=== PATIENT | female | born 1980 | race African-American/Black ===

== ENCOUNTER 2021-07-12 04:10 | Emergency (ER) | payer SELFPAY ==
[2021-07-12] MEDS ORDERED: MAGNES/ALUMIN/SIMET 30ML UCUP ONE (04:41)
[2021-07-12] MEDS ORDERED: ONDANSETRON 4 MG/2 ML VIAL ONE (04:41)
[2021-07-12] MEDS ORDERED: LIDOCAINE VISCOUS 2% SOLN 15 ML UDC ONE (04:41)
[2021-07-12 04:42] LABS: Absolute Lymphocytes (CBC) 0.5 K/uL (0.7-4.9); Basophils % 2.1 % (0-1.3); Hematocrit 33.8 % (36.0-45.0); Lymphocytes % 31.3 % (15.3-44.8); MPV 8.2 fL (7.6-11.3); RBC Red Blood Cell Count 4.23 M/uL (3.86-4.86)
[2021-07-12 05:01] LABS: ALT/SGPT 33 U/L (12-78); AST/SGOT 38 U/L (15-37); Albumin 2.9 g/dL (3.4-5.0); Alkaline Phosphatase 34 U/L (45-117); BUN Blood Urea Nitrogen 7 mg/dL (7-18); Bicarbonate 27 mmol/L (21-32); Bilirubin Direct 0.3 mg/dL (0-0.2); Bilirubin Total 0.7 mg/dL (0.2-1.0); Glucose Level 102 mg/dL (74-106); Lipase 166 U/L (73-393); Potassium 3.2 mmol/L (3.5-5.1); Protein, Total 7.7 g/dL (6.4-8.2); Sodium Level 141 mmol/L (136-145); Troponin (Emerg Dept Use Only) < 0.02 ng/mL (0.0-0.045)
[2021-07-12 05:17] LABS: Blood Morphology Comment NOTED (NOT SEEN); Ovalocytes 1+; Platelet Estimate ADEQ; White Blood Cell Scan OK (OK)
[2021-07-12] MEDS ORDERED: cloNIDine HCL 0.1 MG TAB ONE (05:28)
--- NOTE | 2021-07-12 05:54 | EDPHYS ---
Physician Documentation [facility] Name: Kenny Azul Age: 41 yrs Sex: Female : 1980 Arrival Date: 07/12/2021 Time: 04:14 Bed 7 Private MD: ED Physician Bear Jaime HPI: 07/12 04:19 This 41 yrs old Black Female presents to ER via Unassigned with complaints of chest rn pain. 04:19 The patient or guardian reports chest pain that is located primarily in the substernal rn area. The pain does not radiate. Associated signs and symptoms: Pertinent positives: nausea, vomiting, Pertinent negatives: abdominal pain, cough, diaphoresis, dizziness, headache, lower extremity pain, lower extremity swelling, lightheadedness, near syncope, palpitations, recent travel, shortness of breath, syncope. 04:42 The chest pain is described as aching. Duration: The patient or guardian reports a rn single episode. Modifying factors: The symptoms are alleviated by nothing. the symptoms are aggravated by Vomiting. Severity of pain: At its worst the pain was mild in the emergency department the pain is unchanged. The patient has not experienced similar symptoms in the past. The patient has not recently seen a physician. Patient reports tonight began with nausea vomiting and diarrhea, then began to have chest pain, achy. Denies any cardiac or pulmonary medical problems. Reports vague abdominal pain. Reports yesterday felt okay without fever or chills. No previous history of chest pain. No blood in emesis or stool.. - Immunization history:: Client reports receiving the 1st dose of the Covid vaccine. - Social history:: Smoking status: unknown. - Family history:: not pertinent. - Hospitalizations: : No recent hospitalization is reported. ROS: 04:42 Constitutional: Negative for fever, chills, and weight loss, Eyes: Negative for injury, rn pain, redness, and discharge, ENT: Negative for injury, pain, and discharge, Neck: Negative for injury, pain, and swelling, Cardiovascular: Positive for chest pain, negative for palpitations Respiratory: Negative for shortness of breath, cough, wheezing, and pleuritic chest pain, Abdomen/GI: Positive for abdominal pain/nausea/vomiting/diarrhea Back: Negative for injury and pain, : Negative for injury, bleeding, discharge, and swelling, MS/Extremity: Negative for injury and deformity, Skin: Negative for injury, rash, and discoloration, Neuro: Negative for headache, weakness, numbness, tingling, and seizure. Exam: 04:42 Constitutional: This is a well developed, well nourished patient who is awake, alert, rn and in no acute distress. Head/Face: Normocephalic, atraumatic. Eyes: Periorbital areas with no swelling, redness, or edema. ENT: No stridor Cardiovascular: Regular rate and rhythm. No pulse deficits. Respiratory: No increased work of breathing, no retractions or nasal flaring. Abdomen/GI: Soft, non-tender Skin: Warm, dry MS/ Extremity: Pulses equal, no cyanosis. Neuro: Awake and alert, GCS 15 06:27 ECG was reviewed by the Attending Physician. rn Vital Signs: 04:20 BP 220 / 121; Pulse 79; Resp 19; Temp 98.2; Pulse Ox 100% on R/A; Weight 79.38 kg; ea Height 5 ft. 9 in. (175.26 cm); Pain 3/10; 05:07 BP 199 / 110; Pulse 78; Resp 18; Pulse Ox 99% on R/A; ea 06:00 BP 127 / 89; Pulse 80; Resp 18; Pulse Ox 99% ; ea 04:20 Body Mass Index 25.84 (79.38 kg, 175.26 cm) ea MDM: 04:15 Patient medically screened. rn 05:51 Differential diagnosis: acute myocardial infarction, acute pericarditis, anxiety, chest rn wall pain, esophagitis, gastritis, gastroesophageal reflux disease (GERD), pleurisy, pneumonia, pneumothorax, pulmonary embolus, thoracic aortic disection. Data reviewed: vital signs, nurses notes, lab test result(s), EKG, radiologic studies, CT scan, and as a result, I will discharge patient. Data interpreted: phototypesetting equipment monitor: rate is 78 beats/min, rhythm is normal sinus rhythm, regular, with no ectopy, Interpretation: normal rate, normal rhythm, Pulse oximetry: on room air is 99 %. Interpretation: normal. Test interpretation: by ED physician or midlevel provider: ECG, plain radiologic studies, Hest x-ray with mild bilateral interstitial infiltrates consistent with Covid pneumonia. Counseling: I had a detailed discussion with the patient and/or guardian regarding: the historical points, exam findings, and any diagnostic results supporting the discharge/admit diagnosis, the presence of at least one elevated blood pressure reading (>120/80) during this emergency department visit, radiology results, the need for outpatient follow up, to return to the emergency department if symptoms worsen or persist or if there are any questions or concerns that arise at home. Response to treatment: the patient's symptoms have mildly improved after treatment, and as a result, I will discharge patient. Special discussion: Based on the patient's history, exam, and Dx evaluation, there is no indication for emergent intervention or inpatient Tx. It is understood by the patient/guardian that if the Sx's persist or worsen they need to return immediately for re-evaluation. I discussed with the patient/guardian in detail that at this point there is no indication for admission to the hospital. It is understood, however, that if the symptoms persist or worsen the patient needs to return immediately for re-evaluation. ED course: CT aorta without acute findings. Some findings consistent with Covid pneumonia. No oxygen requirement. Covid positive here. Will DC home with return precautions. States got vaccinated 3 months ago.. 07/12 04:17 Order name: Basic Metabolic Panel; Complete Time: 05:21 rn 07/12 04:17 Order name: CBC with Diff; Complete Time: 05: rn 07/12 04:17 Order name: Hepatic Function; Complete Time: 05: rn 07/12 04:17 Order name: Lipase; Complete Time: 05:21 rn 07/12 04:17 Order name: Troponin (emerg Dept Use Only); Complete Time: 05:21 rn 07/12 04:17 Order name: EKG; Complete Time: 04:17 rn 07/12 04:17 Order name: CT Aorta for Dissection rn 07/12 04:44 Order name: CBC Smear Scan; Complete Time: 05:21 EDMS 07/12 04:55 Order name: CREATININE WHOLE BLOOD; Complete Time: 04:59 EDMS 07/12 05:28 Order name: SARS-COV-2 RT PCR; Complete Time: 05:32 EDMS 07/12 04:17 Order name: IV Saline Lock; Complete Time: 04:27 rn 07/12 04:17 Order name: Labs collected and sent; Complete Time: 04: rn 07/12 04:17 Order name: EKG - Nurse/Tech; Complete Time: : rn EC: Rate is 68 beats/min. Rhythm is regular. QRS [place] is Normal. HI interval is normal. QRS rn interval is normal. QT interval is normal. No Q waves. T waves are Normal. No ST changes noted. Clinical impression: NSR w/ Non-specific ST/T Changes. Interpreted by me. Reviewed by me. Administered Medications: : Drug: Zofran (Ondansetron) 4 mg Route: IVP; Site: right antecubital; ea 05:07 Follow up: Response: No adverse reaction ea 04:27 Drug: GI Cocktail without - (Maalox Suspension 30 ml, Lidocaine Liquid 2 % 15 ea ml) Route: PO; 05:07 Follow up: Response: No adverse reaction ea 05:06 Drug: cloNIDine 0.2 mg Route: PO; ea 06:35 Follow up: Response: No adverse reaction ea Disposition Summary: 07/12/21 05:54 Discharge Ordered Location: Home rn Problem: new rn Symptoms: have improved rn Condition: Stable rn Diagnosis - Pneumonia due to SARS-associated coronavirus rn - Chest pain, unspecified rn Followup: rn - With: Private Physician - When: As needed - Reason: Recheck today's complaints, Re-evaluation by your physician Discharge Instructions: - Discharge Summary Sheet rn - COVID-19 rn - 10 Things You Can Do to Manage Your COVID-19 Symptoms at Home - [facility] rn Forms: - Medication Reconciliation Form rn - Thank You Letter rn - Antibiotic clinical rn liaison - Prescription Opioid Use rn - Work release form ea Prescriptions: - ondansetron 4 mg Oral tablet,disintegrating - place 1 tablet by TRANSLINGUAL route every 8 hours As needed; 20 tablet; rn Refills: 0, Product Selection Permitted Signatures: Dispatcher [employer] EDMS Bear Jaime MD MD rn Antunez, Elena, RN RN tanesha Corrections: (The following items were deleted from the chart) :35 04:17 CORONAVIRUS+ ordered. EDMS EDMS
--- NOTE | 2021-07-12 05:54 | ER ---
Nurse's Notes [facility] Name: Kenny Azul Age: 41 yrs Sex: Female : 1980 Arrival Date: 07/12/2021 Time: 04:14 Bed 7 Private MD: Diagnosis: Pneumonia due to SARS-associated coronavirus;Chest pain, unspecified Presentation: 07/12 04:20 Chief complaint: Patient states: N/V/D with cp pt states "works at [employer] and thinks she ea had potiental exposure to covid.". Coronavirus screen: Vaccine status: Patient reports receiving the 1st dose of the Covid vaccine. Date June 30, 2021 Client denies travel out of the [place] in the last 14 days. diarrhea, nausea, vomiting. Client presents with at least one sign or symptom that may indicate coronavirus-19. Standard/surgical mask placed on the client. Provider contacted for isolation considerations. had first dose of Moderna 06/29/2021. Ebola Screen: Patient negative for fever greater than or equal to 101.5 degrees Fahrenheit, and additional compatible Ebola Virus Disease symptoms Patient denies exposure to infectious person. Patient denies travel to an Ebola-affected area in the 21 days before illness onset. Initial Sepsis Screen: Does the patient meet any 2 criteria? No. Patient's initial sepsis screen is negative. Does the patient have a suspected source of infection? No. Patient's initial sepsis screen is negative. Risk Assessment: Do you want to hurt yourself or someone else? Patient reports no desire to harm self or others. Onset of symptoms was July 11, 2021. 04:20 Method Of Arrival: EMS: [facility] ea 04:20 Acuity: [id number] 3 ea 04:28 Ebola Screen: No symptoms or risks identified at this time. Onset of symptoms was ea July 12, 2021. - Immunization history:: Client reports receiving the 1st dose of the Covid vaccine. - Social history:: Smoking status: unknown. - Family history:: not pertinent. - Hospitalizations: : No recent hospitalization is reported. Screenin:28 Abuse screen: Denies threats or abuse. Nutritional screening: No deficits noted. ea Tuberculosis screening: No symptoms or risk factors identified. Fall Risk None identified. Assessment: 04:33 General: Appears in no apparent distress. comfortable, Behavior is calm, cooperative, ea appropriate for age, Reports feeling ill for 12-24 hours. Pain: Complains of pain in chest Pain does not radiate. Pain Quality of pain is described as pressure, Pain began 1 day ago. Neuro: No deficits noted. Cardiovascular: Rhythm is sinus rhythm Parent/caregiver reports patient has had chest pain, hypertension. Respiratory: No deficits noted. GI: Abdomen is non-distended, Reports diarrhea. : No deficits noted. EENT: No deficits noted. Musculoskeletal: No deficits noted. 06:34 Reassessment: Patient and/or family updated on plan of care and expected duration. Pain ea level reassessed. Patient is alert, oriented x 3, equal unlabored respirations, skin warm/dry/pink. Discharge instruction given to patient verbalized the understanding of instruction. Pt left ED ambulatory tolerating well. Vital Signs: 04:20 BP 220 / 121; Pulse 79; Resp 19; Temp 98.2; Pulse Ox 100% on R/A; Weight 79.38 kg; ea Height 5 ft. 9 in. (175.26 cm); Pain 3/10; 05:07 BP 199 / 110; Pulse 78; Resp 18; Pulse Ox 99% on R/A; ea 06:00 BP 127 / 89; Pulse 80; Resp 18; Pulse Ox 99% ; ea 04:20 Body Mass Index 25.84 (79.38 kg, 175.26 cm) ea ED Course: 04:14 Patient arrived in ED. ea 04:15 Bear Jaime MD is Attending Physician. rn 04:28 Patient has correct armband on for positive identification. Bed in low position. Call ea light in reach. Side rails up X2. 04:28 Arm band placed on right wrist. Patient placed in an exam room, on a stretcher, on ea pulse oximetry. 04:33 Triage completed. ea 04:33 No provider procedures requiring assistance completed. ea 04:34 Inserted saline lock: 18 gauge in right antecubital area, using aseptic technique. kc4 Blood collected. 04:43 Notified ED physician of a critical lab result(s). WBCs of 1.6 Dr Jaime notified. bb 04:45 CT Aorta for Dissection In Process Unspecified. EDMS 05:02 Lashonda Roberts is Primary Nurse. kc4 06:33 IV discontinued, intact, bleeding controlled, No redness/swelling at site. Pressure ea dressing applied. Administered Medications: 04:27 Drug: Zofran (Ondansetron) 4 mg Route: IVP; Site: right antecubital; ea 05:07 Follow up: Response: No adverse reaction ea 04:27 Drug: GI Cocktail without - (Maalox Suspension 30 ml, Lidocaine Liquid 2 % 15 ea ml) Route: PO; 05:07 Follow up: Response: No adverse reaction ea 05:06 Drug: cloNIDine 0.2 mg Route: PO; ea 06:35 Follow up: Response: No adverse reaction ea Outcome: 05:54 Discharge ordered by . rn 06:32 Discharged to home ambulatory. ea 06:32 Condition: stable 06:32 Discharge instructions given to patient, Instructed on discharge instructions, follow up and referral plans. medication usage, Demonstrated understanding of instructions, follow-up care, medications, Prescriptions given X 1. 06:35 Patient left the ED. ea Signatures: Dispatcher [employer] EDGely Hoang RN RN bb Nieto, Roman, MD MD rn Antunez, Elena, RN RN ea Chuman, Kourtney kc4
[2021-07-12 06:44] VITALS: TEMP 98.2
[2021-07-12 06:45] VITALS: O2SAT 99
[2021-07-12 06:47] VITALS: BP 127/89
--- NOTE | 2021-07-12 12:20 | RAD REPORT ---
EXAM DESCRIPTION: CT - Angio Aorta For Dissection - 07/12/2021 6:22 am CLINICAL HISTORY: The patient is 41 years old and is Female; abd pain, HTN;Chest pain TECHNIQUE: Axial computed tomographic angiography images of the chest, abdomen and pelvis with intra venous contrast. Sagittal and coronal reformatted images were created and reviewed. This CT exam was performed using one or more of the following dose reduction techniques: automated exposure cont rol, adjustment of the mA and/or kV according to patient size, and/or use of iterative reconstruction technique. MIP reconstructed images were created and reviewed. COMPARISON: No relevant prior studies available. FINDINGS: VASCULATURE: AORTA: No acute findings. No aortic aneurysm. No dissection. PULMONARY ARTERIES: Unremarkable as visualized. No pulmonary embolism is identified. GREAT VESSELS OF AORTIC ARCH: No acute findings. No dissection. No arterial occlusion or sig nificant stenosis. CELIAC TRUNK AND MESENTERIC ARTERIES: No acute findings. No occlusion or significant stenosis. RENAL ARTERIES: No acute findings. No occlusion or significant stenosis. ILIAC ARTERIES: No acute findings. No occlusion or significant stenosis. CHEST: LUNGS: Subtle opacity peripheral groundglass infiltrates are present throughout the lungs. PLEURAL SPACE: Unremarkable. No significant effusion. No pneumothorax. HEART: Unremarkable. No cardiomegaly. No significant pericardial effusion. MEDIASTINUM: The tracheobronchial tree is widely patent. ABDOMEN: LIVER: Unremarkable. No mass. GALLBLADDER AND BILE DUCTS: Unremarkable. No calcified stones. No ductal dilation. PANCREAS: Unremarkable. No ductal dilation. No mass. SPLEEN: Unremarkable. No splenomegaly. ADRENALS: Unremarkable. No mass. KIDNEYS AND URETERS: Unremarkable. No hydronephrosis. No solid mass. STOMACH AND BOWEL: The stomach is distended with fluid and food contents. The small bowel is nor mal in caliber. Stool is present throughout colon. There is no mucosal thickening or evidence of kenyatta l obstruction. PELVIS: APPENDIX: The appendix is normal in caliber without surrounding inflammation. BLADDER: The bladder is moderately distended. REPRODUCTIVE: A heterogeneous uterine fibroid measuring approximately 2.6 cm is present. The kelli zenobia and ovaries are otherwise unremarkable. CHEST, ABDOMEN and PELVIS: INTRAPERITONEAL SPACE: Unremarkable. No significant fluid collection. No free air. BONES/JOINTS: No acute fracture. No dislocation. SOFT TISSUES: Unremarkable. LYMPH NODES: Unremarkable. No enlarged lymph nodes. IMPRESSION: 1. No evidence of aortic aneurysm or dissection. 2. Scattered groundglass infiltrates throughout the lungs. Commonly reported imaging features of (COVID-19 or viral) pneumonia are present. Other processes such as influenza pneumonia and organizing pneumonia, as can be seen with drug toxicity and connective tissue disease, can cause a similar imag ing pattern. [id number] Electronically signed by: Corinne Farah MD 07/12/2021 5:27 AM CDT Due to temporary technical issues with the PACS/Fluency reporting system, reports are being signed by the in house radiologist without review as a courtesy to ensure prompt reporting. The interpreting r adiologist is fully responsible for the content of the report.
== END 2021-07-12 06:35 | disposition home or self-care (01) ==
LOC: ER 04:10
DX: U07.1 COVID-19 (principal); J12.82 Pneumonia due to coronavirus disease 2019
CPT/HCPCS: 36415; 71275; 74175; 80048; 80076; 82565; 83690; 84484; 85025; 93005; 96374; 99284; J2405; Q9967; U0003

== ENCOUNTER 2021-07-13 14:29 | Inpatient (IN) | payer SELFPAY ==
--- OUTSIDE RECORDS SUMMARY | 2021-07-13 14:33 | XMS REPORT | Continuity of Care Document ---
:1980 Author Organization [facility] t Address [address] [place] [address] Care Team Providers Name Role Phone Pedro Luis Barragan Attending Clinician Tavo Beatty Attending Clinician Problems Condition Condition Condition Status Onset Resolution Last Treating Co mments Source Name Details Category Date Date Treatment Clinician Date SWOLLEN Diagnosis Active 2020-05-05 Me moria HAND 04-17 06:19:00 l SWOLLEN 09:00: [place] HAND 00 Active 04/17/2020 [facility] LEFT ARM Diagnosis Active 2020-06-30 M emoria INJURY OR 04-17 16:04:00 l PAIN LEFT ARM 05:00: Timbo n INJURY OR 00 PAIN Active 04/17/2020 [facility] Seizure Problem Resolve 2020-05-04 Mem oria (finding) d 22:45:53 l Seizure [place] (finding) Resolved Problem 05/04/2020 [facility] History of Past Illness Condition Condition Condition Status Onset Resolution Last Treating Co mments Source Name Details Category Date Date Treatment Clinician Date Unspecifie Problem 2020-05-04 2020-05-04 Memoria d fracture 05-02 22:45:53 22:45:53 l of lower 17:00: [place]asma end of Unspecifie 00 left d fracture humerus, of lower initial end of encounter left for closed humerus, fracture initial encounter for closed fracture 0 05/04/2020 [facility] Essential Problem 2020-05-04 2020-05-04 Memoria (primary) 05-02 22:45:53 22:45:53 l hypertensi 17:00: Timbo n on Essential 00 (primary) hypertensi on 05/02/2020 05/04/2020 [facility] Allergies, Adverse Reactions, Alerts This patient has no known allergies or adverse reactions. Social History Smoking Status Start Date Stop Date Source Social History [facility] Medications Ordered Filled Start Stop Current Ordering Indication Dosage Frequency Signature Comments Components Source Medication Medication Date Date Medication? Clinician (SIG) Name Name Hydrochloro 2020-0 Yes 1 tab, PO, Memoria thiazide 6-30 Daily, # l 12.5 MG / 22:47: 30 tab, 0 Her madera Lisinopril 00 Refill(s) 20 MG Oral Tablet Acetaminoph 2020-0 No 1 tab, Irvin maryann en 325 MG / 6-30 Route: PO, l Hydrocodone 21:31: Drug Form: [place] Bitartrate 00 TAB, 5 MG Oral Dosing Tablet Weight [[place] 85.091, 5/325] kg, ONCE, STAT, Start date: 05/02/20 16:31:00 CDT, Stop date: 05/02/20 16:31:00 CDT Clonidine 2020-0 No Notes: Memori a Hydrochlori 6-30 (Same As: l de 0.2 MG 20:39: Catapres) Her madera Oral Tablet 00 Saline 2019-0 No Notes: Memoria Flush 0.9% 6-30 (Same as: l 20:30: BD [place] 00 Posiflush) Clonidine 2020-0 No 0.1 mg, Memor ia Hydrochlori 6-15 Route: PO, l de 0.1 MG 21:02: Drug form: He rmann Oral Tablet 00 TAB, ONCE, Dosing Weight 83.438, kg, Priority: STAT, Start date: 04/17/20 16:02:00 CDT, Stop date: 04/17/20 16:02:00 CDT Morphine 2020-0 No 4 mg, Memoria 6-15 Route: IM, l 21:00: ONCE, [place] 00 Dosing Weight 83.438, kg, Priority: STAT, Start date: 04/17/20 16:00:00 CDT, Stop date: 04/17/20 16:00:00 CDT tramadol 2020-0 Yes 50 mg = 1 Irvin maryann hydrochlori 6-15 tab, PO, l de 50 MG 20:31: Q6H, X 5 Nancy nn Oral Tablet 00 day, # 20 tab, 0 Refill(s) Acetaminoph 2020-0 No 1 tab, PO, Memoria en 300 MG / 6-15 Q6H, PRN l Codeine 20:04: Pain, X 7 Nancy nn Phosphate 00 day, # 21 30 MG Oral tab, 0 Tablet Refill(s) [Tylenol with Codeine #3] ibuprofen Yes 800 mg = 1 Me moria 800 mg oral 6-15 tab, PO, l tablet 20:04: TID, X 5 [place] 00 day, # 15 tab, 0 Refill(s) Acetaminoph No 2 tab, Irvin maryann en 325 MG / 6-15 Route: PO, l Hydrocodone 17:05: Drug Form: [place] Bitartrate 00 TAB, 5 MG Oral Dosing Tablet Weight [[place] 68.182, 5/325] kg, ONCE, STAT, Start date: 04/17/20 12:05:00 CDT, Stop date: 04/17/20 12:05:00 CDT Vital Signs Vital Name Observation Time Observation Value Comments Source Systolic (mm Hg) 2020-05-02 22:45:00 Irvin rial [place] Diastolic (mm Hg) 2020-05-02 22:45:00 [facility] orial [facility] Heart Rate 2020-05-02 22:45:00 [facility] Respitory Rate 2020-05-02 22:45:00 [facility] al [place] Height 2020-05-02 20:23:00 [facility] Calculated 2020-05-02 20:23:00 Memori al [place] Weight 2020-05-02 20:23:00 [facility] Systolic (mm Hg) 2020-05-02 20:23:00 Irvin rial [place] Diastolic (mm Hg) 2020-05-02 20:23:00 [facility] orial [place] Heart Rate 2020-05-02 20:23:00 [facility] Respitory Rate 2020-05-02 20:23:00 [facility] [place] Temperature Oral (F) 2020-05-02 20:23:00 98.8 F [facility] Systolic (mm Hg) 2020-04-17 21:34:00 Irvin rial [place] Diastolic (mm Hg) 2020-04-17 21:34:00 Mem orial [place] Heart Rate 2020-04-17 21:34:00 [facility] Respitory Rate 2020-04-17 21:34:00 Memori al [place] Systolic (mm Hg) 2020-04-17 21:04:00 Irvin rial [place] Diastolic (mm Hg) 2020-04-17 21:04:00 Mem orial [place] Heart Rate 2020-04-17 21:04:00 [facility] Respitory Rate 2020-04-17 21:04:00 Memori al [place] Weight 2020-04-17 17:04:00 [facility] [place] Systolic (mm Hg) 2020-04-17 17:04:00 Irvin rial [place] Diastolic (mm Hg) 2020-04-17 17:04:00 Mem orial [place] Heart Rate 2020-04-17 17:04:00 [facility] [place] Respitory Rate 2020-04-17 17:04:00 Memori al [place] Height 2020-04-17 17:04:00 175.26 cm [facility] BMI Calculated 2020-04-17 17:04:00 Memori al [place] Procedures This patient has no known procedures. Encounters Start End Encounter Admission Attending Care Care Encounter Source Date/Time Date/Time Type Type Clinicians Facility Department ID 2020-05-02 2020-05-02 Emergency null[facility] [id number] Memoria 20:02:34 23:00:00 r [facility] 03 l [facility] 2020-05-02 2020-05-02 Outpatient Yung [facility] [id number] 15:02:34 18:00:00 Christishmael Cloud 2020-05-02 2020-05-02 [place] [facility] [place] 7503 [facility] 15:02:00 15:02:00 2020-04-17 2020-04-17 [facility] [id number] Memoria 16:55:43 22:29:00 r [place] 02 l [facility] 2020-04-17 2020-04-17 Outpatient Rogerio [facility] [id number] 11:55:43 17:29:00 Vidal Kannan Vo 2020-04-17 2020-04-17 Emergency E [facility] 7502 [facility]NE 11:55:00 11:55:00 Results Test Description Test Time Test Comments Results Result Comments Source URINE AND STOOL 2020-05-02 [facility] 21:39:00 *NA*(05/02/20 [place] 4:39 PM) URINE AND STOOL 2020-05-02 Slight [facility] 21:39:00 *ABN*(6/30/20 [place] 4:39 PM) URINE AND STOOL 2020-05-02 21:39:00 Test Item Value Reference Range Interpretation Comme nts UA Spec Grav (test code = UA Spec Grav) 1.024 1 [facility] [id number] 21:39:00 Test Item Value Reference Range Interpretation Comments UA pH (test code = UA pH) 5.0 1 5.0-8.0 [facility] [id number] 21:39:00Negative *NA*(05/02/20 4:39 PM) [facility] [id number] 21:39:00Negative (05/02/20 4:39 PM) [facility] [id number] 21:39:00Positive *ABN*(05/02/20 4:39 PM)[facility] [id number] 21:39:00Negative (05/02/20 4:39 PM) [facility] [id number] 21:39:002[facility] [id number] 21:39:002[facility]annCHEM [id number] 21:30:0080[facility]annCHE[facility] [id number] 21:30:0016[facility]annCHE[facility] [id number] 21:30:000.84[facility]ann[facility] [id number] 21:30:40711Byxntsjw HermannCHEM [id number] 21:30:003.4[facility]annCHE[facility] [id number] 21:30:95237 [facility] [id number] 21:30:0027[facility]annCHE[facility] PANEL 2020-05-02 21:30:009.0[facility]ann[facility] [id number] 21:30:008.9[facility] [id number] 21:30:003.9[facility]annCHE[facility] [id number] 21:30:0016[facility]annCHEM [id number] 21:30:0018[facility] HermannCHEM [id number] 21:30:0041[facility]annCHEM [id number] 21:30:000.3 [facility] [id number] 21:30:007.4[facility] HermannCHEM PANEL 2020-05-02 21:30:00 Test Item Value Reference Range Interpretation Comments B/C Ratio (test code = B/C Ratio) 19 1 6-25 [facility] [id number] 21:30:005.0[facility]annCHEM PANEL 2020-05-02 21:30:00 Test Item Value Reference Range Interpretation Comments A/G Ratio (test code = A/G Ratio) 0.8 1 0.7-1.6 [facility] [id number] 21:30:35236Oktcctzc HermannHEMATOLOGY 2020-05-02 21:30:004.2[facility] [id number] 21:30:004.39[facility] GodqvhmKLWSMXBZGJ9052-59-11 21:30:0011.4[facility] GixhkbeBZYVNKLQHG5085-96-38 21:30:0035.7[facility] NfgsfihGRMNWMMCBW6560-07-53 21:30:0081.2[facility] [id number] 21:30:00 Test Item Value Reference Range Interpretation Comments MCH (test code = MCH) 26.0 pg 27.0-31.0 [facility] [id number] 21:30:0032.0[facility] HermannHEMATOLOGY 2020-05-02 21:30:0014.8[facility] [id number] 21:30:39992Siywuqdd AmncmoaUPBXZXKIVO7460-85-53 21:30:008.2[facility] OybrteuDWYTOOSKUN5320-57-77 21:30:0060.9[facility] CdmrrxmZCOXILKLSN6704-22-83 21:30:0024.8[facility] [id number] 21:30:0011.8[facility] [id number] 21:30:00 1.4[facility]orial LkakadcPCJCEDVDJB1725-79-13 21:30:001.1[facility] HermannHEMATOLOGY 2020-05-02 21:30:002.5[facility]orial KicepogCARKGBZWYJ8327-59-52 21:30:001.0[facility] QkkgumvAXDRSQSHYS0464-31-32 21:30:000.5[facility] EvrgffuAFJMMUHIGF0190-96-89 21:30:000.1[facility]
[2021-07-13 16:44] LABS: Absolute Lymphocytes (CBC) 0.7 K/uL (0.7-4.9); Basophils % 0.7 % (0-1.3); Lymphocytes % 12.3 % (15.3-44.8); RBC Red Blood Cell Count 4.14 M/uL (3.86-4.86)
[2021-07-13 16:46] LABS: Protime INR 1.05
[2021-07-13 16:49] LABS: Urine Blood 1+ (Negative); Urine Glucose Negative (Negative); Urine Protein 2+ (Negative); Urine Specific Gravity 1.015 (1.005-1.030)
[2021-07-13] MEDS ORDERED: MORPHINE 2 MG/ML SYR ONE (16:50)
[2021-07-13 16:51] LABS: ALT/SGPT 31 U/L (12-78); AST/SGOT 25 U/L (15-37); Albumin 3.4 g/dL (3.4-5.0); Alkaline Phosphatase 35 U/L (45-117); BUN Blood Urea Nitrogen 4 mg/dL (7-18); Bicarbonate 25 mmol/L (21-32); Bilirubin Direct 0.2 mg/dL (0-0.2); Bilirubin Total 0.7 mg/dL (0.2-1.0); Glucose Level 76 mg/dL (74-106); Magnesium 1.7 mg/dL (1.8-2.4); NT PRO-BNP 264 pg/mL (<125); Sodium Level 140 mmol/L (136-145); Troponin (Emerg Dept Use Only) < 0.02 ng/mL (0.0-0.045)
[2021-07-13 16:54] LABS: Potassium 2.9 mmol/L (3.5-5.1)
--- NOTE | 2021-07-13 16:57 | RAD REPORT ---
EXAM DESCRIPTION: RAD - Chest Single View - 07/13/2021 4:36 pm CLINICAL HISTORY: CHEST PAIN COMPARISON: None TECHNIQUE: AP portable chest image was obtained 07/13/2021 4:36 pm . FINDINGS: Lungs are clear. Heart and vasculature are normal. No measurable pleural effusion and no p neumothorax. No acute bony abnormality seen. No acute aortic findings suspected. IMPRESSION: No acute cardiopulmonary process.
--- NOTE | 2021-07-13 18:13 | RAD REPORT ---
EXAM DESCRIPTION: CT - Head Brain Wo Cont - 07/13/2021 6:04 pm CLINICAL HISTORY: SYNCOPE, found unresponsive COMPARISON: <Comparisons> TECHNIQUE: Axial 5 mm thick images of the head were obtained without IV contrast. All CT scans are performed using dose optimization technique as appropriate and may include automated exposure control or mA/KV adjustment according to patient size. FINDINGS: No intracranial hemorrhage, mass, edema or shift of mid-line structures. No acute infarcti on changes seen. No abnormal extra-axial fluid collections. Ventricles are normal. Patient has a norm al variant cavum septum pellucidum. Mastoid air cells and visualized portions of the paranasal sinuses are clear. No acute bony findings. IMPRESSION: Negative non-contrast CT head examination.
--- NOTE | 2021-07-13 18:18 | RAD REPORT ---
EXAM DESCRIPTION: CT - Angio Aorta For Dissection - 07/13/2021 6:07 pm CLINICAL HISTORY: syncope;Chest pain COMPARISON: Portable chest July 13, CT angio dissection July 12 TECHNIQUE: Dynamically enhanced 3 mm thick images of the chest, abdomen, and pelvis were obtained du ring administration of approximately 150mL Isovue 370 IV contrast. Sagittal and coronal reconstructio n images were generated using MIP and reviewed. Exam utilizes a protocol to evaluate entire course of the aorta. All CT scans are performed using dose optimization technique as appropriate and may include automated exposure control or mA/KV adjustment according to patient size. FINDINGS: Aorta is normal in diameter with no dissection or other acute aortic findings. Reconstruct ion images show no significant findings. No changes to the aorta from prior day imaging. Pulmonary arteries are normal as well. No cardiomegaly, pericardial thickening or pericardial effusio n. Patchy ground-glass opacities are present in a peripheral distribution. This is a commonly described pattern with COVID-19 pneumonia. This mild pneumonia pattern has not changed from the prior day. No p leural thickening, pleural effusion or pneumothorax. No abnormal mediastinal or hilar mass or lymphadenopathy seen. No chest wall mass or abnormal axillar y lymphadenopathy. Celiac, SMA and renal arteries show no suspicious findings. Solid abdominal viscera and bowel show no significant findings. No appendicitis findings. No mass or abnormal lymphadenopathy. No free air, f ree fluid or inflammatory stranding. No urinary bladder abnormality. A 3.5 centimeter fibroid is pre sent in the lower right uterus. No suspicious ovarian or adnexal finding. A 2.5 centimeter right ovar jennifer cyst is present without rupture or hemorrhage finding. IMPRESSION: Negative CT scan of the aorta. No change from the prior day examination. Mild peripheral ground-glass lung parenchymal opacification pattern. This is a well described pattern with COVID-19 pneumonia. No changes from prior day imaging. No other significant findings on chest, abdomen and upper pelvis examination.
[2021-07-13] MEDS ORDERED: KCL 20 MEQ/100 mL IVPB 20 MEQ/100 ML BAG IV ONE (18:30)
[2021-07-13] MEDS ORDERED: HYDRALAZINE HCL 20 MG/ML VIAL ONE (18:30)
[2021-07-13] MEDS ORDERED: MAGNESIUM SULFATE 1 gm IVPB 1 GM/100 ML BAG IV ONE (18:30)
[2021-07-13] MEDS ORDERED: POTASSIUM 25 MEQ EFFERV TAB PO ONE (20:03)
[2021-07-13] MEDS ORDERED: ACETAMINOPHEN 500 MG TAB PO PRN (20:03)
[2021-07-13] MEDS ORDERED: ONDANSETRON 4 MG/2 ML VIAL IV PRN (20:03)
[2021-07-13] MEDS ORDERED: NITROGLYCERIN 0.4 MG/TAB SL PRN (20:03)
[2021-07-13] MEDS ORDERED: BENZONATATE 100 MG CAP PO PRN (20:03)
[2021-07-13] MEDS ORDERED: MELATONIN 5 MG TABLET PO PRN (20:10)
--- NOTE | 2021-07-13 20:43 | EDPHYS ---
Physician Documentation [facility] Name: Kenny Azul Age: 41 yrs Sex: Female : 1980 Arrival Date: 07/13/2021 Time: 14:40 Bed 25 Private MD: ED Physician Julián Dunlap HPI: 07/13 15:15 This 41 yrs old Black Female presents to ER via EMS with complaints of Syncope and cp Chest Pain. 15:15 The patient or guardian reports chest pain that is located primarily in the substernal cp area. 15:15 Associated signs and symptoms: Pertinent positives: syncope, Pertinent negatives: cp abdominal pain, lower extremity pain, lower extremity swelling. 15:15 The pain radiates to the left arm. The chest pain is described as aching. Duration: The cp patient or guardian reports a single episode, that is still ongoing. Severity of pain: in the emergency department the pain is a 8 / 10. Historical: - Allergies: 15:26 No Known Allergies; ss - Home Meds: 15:26 Lisinopril Oral [Active]; ss - PMHx: 15:26 Hypertensive disorder; ss - Immunization history:: Adult Immunizations Client reports receiving the 1st dose of the Covid vaccine, June 29, 2021. - Social history:: Smoking status: Patient denies any tobacco usage or history of. ROS: 15:20 Constitutional: Negative for body aches, chills, fever, poor PO intake. cp 15:20 Eyes: Negative for injury, pain, redness, and discharge. cp 15:20 Cardiovascular: Positive for chest pain, Negative for edema, palpitations. 15:20 Respiratory: Negative for cough, shortness of breath, wheezing. 15:20 Neuro: Positive for headache, syncope. 15:20 Abdomen/GI: Negative for abdominal pain, nausea, vomiting, and diarrhea. cp 15:20 : Negative for urinary symptoms. cp 15:20 All other systems are negative. Exam: 15:25 Constitutional: The patient appears in no acute distress, alert, awake, cp non-diaphoretic, non-toxic, well developed, well nourished. 15:25 Head/Face: Normocephalic, atraumatic. cp 15:25 Eyes: Periorbital structures: appear normal, Conjunctiva: normal, no exudate, no injection, Sclera: no appreciated abnormality, Lids and lashes: appear normal, bilaterally. 15:25 ENT: External ear(s): are unremarkable, Nose: is normal, Mouth: Lips: moist, Oral mucosa: moist, Posterior pharynx: Airway: no evidence of obstruction, patent. 15:25 Neck: ROM/movement: is normal, is supple, without pain, no range of motions limitations. 15:25 Chest/axilla: Inspection: normal. 15:25 Cardiovascular: Rate: normal, Rhythm: regular, Pulses: Pulses are 2+ in right radial artery and left radial artery. Edema: is not appreciated. 15:25 Respiratory: the patient does not display signs of respiratory distress, Respirations: normal, no use of accessory muscles, no retractions, labored breathing, is not present, Breath sounds: are clear throughout, no decreased breath sounds, no stridor, no wheezing. 15:25 Abdomen/GI: Inspection: abdomen appears normal, Bowel sounds: active, all quadrants, Palpation: abdomen is soft and non-tender, in all quadrants. 15:25 Neuro: Orientation: to person, place \\T\\ time. Mentation: is normal, Motor: moves all fours, strength is normal, Sensation: no obvious gross deficits. 16:33 ECG was reviewed by the Attending Physician. Vital Signs: 16:50 Weight 79.38 kg; Height 5 ft. 9 in. (175.26 cm); ap3 16:51 BP 177 / 118; Pulse 67; Resp 17; Pulse Ox 100% on R/A; ap3 18:35 BP 165 / 104; ap3 20:01 BP 163 / 108; Pulse 101; Resp 19; Pulse Ox 100% on R/A; ap3 16:50 Body Mass Index 25.84 (79.38 kg, 175.26 cm) ap3 MDM: 15:05 Patient medically screened. 07/14 18:10 Data reviewed: vital signs, nurses notes, lab test result(s), EKG. 18:10 Test interpretation: by ED physician or midlevel provider: ECG, plain radiologic cp studies. Physician consultation: Ruben VALENTIN was contacted at 18:10, regarding admission, to the telemetry unit. patient's condition. 07/13 15:13 Order name: Basic Metabolic Panel; Complete Time: 17:06 07/13 17:07 Interpretation: Normal except: K 2.9; BUN 4. cp 07/13 15:13 Order name: CBC with Diff; Complete Time: 17:06 07/13 17:07 Interpretation: Normal except: HGB 10.9; HCT 33.0; MCV 79.7; MCH 26.4; PLT 374; RDW cp 15.3; DELMA% 75.0; LYM% 12.3. 07/13 15:13 Order name: LFT's; Complete Time: 17:06 07/13 15:13 Order name: Magnesium; Complete Time: 17:06 07/13 15:13 Order name: NT PRO-BNP; Complete Time: 17:06 07/13 15:13 Order name: PT-INR; Complete Time: 17:06 07/13 15:13 Order name: Troponin (emerg Dept Use Only); Complete Time: 17:06 07/13 16:48 Order name: Urine Dipstick-Ancillary; Complete Time: 17:06 [facility] 07/13 18:25 Order name: COVID-19 : Document "Date of Symptom Onset" if Symptomatic. [facility] 07/13 21:37 Order name: Troponin I; Complete Time: 21:38 [facility] 07/13 21:37 Order name: C-Reactive Protein; Complete Time: 21:38 [facility] 07/13 21:37 Order name: Ferritin; Complete Time: 21:38 [facility] 07/13 21:52 Order name: Procalcitonin; Complete Time: 21:54 [facility] 07/14 02:21 Order name: CBC with Automated Diff [facility] 07/13 15:13 Order name: XRAY Chest (1 view); Complete Time: 17:06 07/13 15:13 Order name: CT Head Brain wo Cont; Complete Time: 18:14 07/13 15:13 Order name: CT Aorta for Dissection; Complete Time: 18:24 07/14 02:36 Order name: Troponin I [facility] 07/14 02:48 Order name: Comprehensive Metabolic Panel [facility] 07/14 02:48 Order name: Phosphorus [facility] 07/14 02:48 Order name: Lipid Profile [facility] 07/14 02:48 Order name: T4 Free [facility] 07/14 02:48 Order name: Magnesium [facility] 07/14 02:48 Order name: Thyroid Stimulating Hormone [facility] 07/14 02:48 Order name: Transferrin Sat/Iron Binding [facility] 07/14 02:48 Order name: Ferritin [facility] 07/13 15:13 Order name: EKG; Complete Time: 15:14 cp 07/13 15:13 Order name: Cardiac monitoring; Complete Time: 15:59 cp 07/13 15:13 Order name: EKG - Nurse/Tech; Complete Time: 16:24 cp 07/13 15:13 Order name: IV Saline Lock; Complete Time: 16:15 cp 07/13 15:13 Order name: Labs collected and sent; Complete Time: 16:15 cp 07/13 15:13 Order name: O2 Per Protocol; Complete Time: 15:59 cp 07/13 15:13 Order name: O2 Sat Monitoring; Complete Time: 15:59 cp 07/13 15:13 Order name: Urine Dipstick-Ancillary (obtain specimen); Complete Time: 16:48 cp 07/13 15:13 Order name: Urine Test (obtain specimen); Complete Time: 16:48 cp 07/13 18:37 Order name: CONS Physician Consult [facility] EC/10 16:33 Rate is 80 beats/min. Rhythm is regular. SC interval is normal. QRS interval is normal. cp QT interval is normal. T waves are Flattened in lead aVL. Interpreted by me. Reviewed by me. Administered Medications: 16:27 Drug: morphine 2 mg Route: IVP; Site: left antecubital; ap3 18:23 Follow up: Response: No adverse reaction; Pain is decreased ap3 17:19 Drug: NS 0.9% 1000 ml Route: IV; Rate: 1 bolus; Site: left antecubital; ap3 18:23 Drug: Potassium Chloride 20 mEq Route: IV; Rate: calculated rate; Site: right ap3 antecubital; 18:23 Drug: Magnesium Sulfate 1 grams Route: IVPB; Infused Over: 1 hrs; Site: left ap3 antecubital; 18:23 Drug: hydrALAZINE 10 mg Route: IVP; Site: left antecubital; ap3 07/14 03:19 Drug: hydrALAZINE 10 mg Route: IVP; Site: right forearm; cc4 03:19 Drug: morphine 2 mg Route: IVP; Site: right forearm; cc4 Disposition Summary: 07/13/21 20:42 Hospitalization Ordered Hospitalization Status: Observation jmm Provider: Sveta Lott Condition: Stable jmm Problem: new jmm Symptoms: are unchanged jmm Bed/Room Type: Standard [facility] Location: Telemetry/MedSurg (observation)(07/14/21 18:41) dw Room Assignment: 428(07/14/21 18:41) dw Diagnosis - Syncope jmm - Chest Pain jmm - Hypertensive Urgency jmm - Coronavirus infection, unspecified jmm Forms: - Medication Reconciliation Form jmm - SBAR form jmm Addendum: 07/16/2021 06:17 Co-signature as Attending Physician, Eliel Jordan MD I agree with the assessment and k dr plan of care. Signatures: Dispatcher [employer] EDKeira Shafer RN RN dw Rittger, Kevin, MD MD [facility] Tomás Floyd PA PA jmm Ballard, Brenda, RN RN bb Lucero Victoria RN RN ss Page, Corey, PA PA Julián Damon MD MD tw4 Shelly Montoya RN RN ap3 Ruben Tabares PA PA ej Cooper, Christie cc4 Corrections: (The following items were deleted from the chart) 07/13 22:54 20:42 Telemetry/MedSurg (observation) [facility] 22:54 20:[facility] 07/14 18:41 07/13 22:54 [facility] ER HOLD bb 07/14 18:41 07/13 22:54 ERHOLD- bb dw 07/15 17:45 07/14 15:15 The pain does not radiate. cp cp 07/15 17:45 07/14 15:15 Associated signs and symptoms: Pertinent positives: syncope, Pertinent cp negatives: abdominal pain, lower extremity pain, lower extremity swelling, cp
--- NOTE | 2021-07-13 20:43 | ER ---
Nurse's Notes [facility] Name: Kenny Azul Age: 41 yrs Sex: Female : 1980 Arrival Date: 07/13/2021 Time: 14:40 Bed 25 Private MD: Diagnosis: Syncope;Chest Pain;Hypertensive Urgency;Coronavirus infection, unspecified Presentation: 07/13 15:23 Chief complaint: EMS states: Found in hallway by friend who states patient was ss unresponsive for approximately 10 minutes. Pt initially was complaining of chest discomfort to EMS. BP upon arrival was 230/130 after giving ASA 324mg and Nitro 0.4 BP came down to 180/110. Coronavirus screen: Client denies travel out of the [place] in the last 14 days. Ebola Screen: Patient denies exposure to infectious person. Patient denies travel to an Ebola-affected area in the 21 days before illness onset. Initial Sepsis Screen: Does the patient meet any 2 criteria? No. Patient's initial sepsis screen is negative. Does the patient have a suspected source of infection? No. Patient's initial sepsis screen is negative. Risk Assessment: Do you want to hurt yourself or someone else? Patient reports no desire to harm self or others. Onset of symptoms was July 13, 2021. 15:23 Method Of Arrival: EMS: [facility] 15:23 Acuity: ELZBIETA 2 ss Historical: - Allergies: 15:26 No Known Allergies; ss - Home Meds: 15:26 Lisinopril Oral [Active]; ss - PMHx: 15:26 Hypertensive disorder; ss - Immunization history:: Adult Immunizations Client reports receiving the 1st dose of the Covid vaccine, June 29, 2021. - Social history:: Smoking status: Patient denies any tobacco usage or history of. Screenin:57 Abuse screen: Denies threats or abuse. Nutritional screening: No deficits noted. ap3 Tuberculosis screening: No symptoms or risk factors identified. Fall Risk None identified. Assessment: 15:55 General: Appears in no apparent distress. comfortable, Behavior is calm, cooperative, ap3 appropriate for age. Pain: Complains of pain in chest Pain radiates to left arm Pain currently is 8 out of 10 on a pain scale. Alleviated by rest, Aggravated by deep breathing. Neuro: Level of Consciousness is awake, alert, obeys commands, Oriented to person, place, time, situation, Appropriate for age Counter Top Maker are equal bilaterally Moves all extremities. Gait is steady, Speech is normal. Cardiovascular: Reports chest pain, Denies lightheadedness, shortness of breath. Cardiovascular: Patient's skin is warm and dry. Respiratory: Airway is patent Respiratory effort is even, unlabored, Respiratory pattern is regular, symmetrical. GI: No signs and/or symptoms were reported involving the gastrointestinal system. : No signs and/or symptoms were reported regarding the genitourinary system. 16:49 Reassessment: patient wet herself in the bed. nurse provided patient with bedside ap3 commode. nurse cleaned patient and provided her with a bed of clean linens and fresh gown. 18:24 Reassessment: Patient and/or family updated on plan of care and expected duration. Pain ap3 level reassessed. Patient is alert, oriented x 3, equal unlabored respirations, skin warm/dry/pink. Vital Signs: 16:50 Weight 79.38 kg; Height 5 ft. 9 in. (175.26 cm); ap3 16:51 BP 177 / 118; Pulse 67; Resp 17; Pulse Ox 100% on R/A; ap3 18:35 BP 165 / 104; ap3 20:01 BP 163 / 108; Pulse 101; Resp 19; Pulse Ox 100% on R/A; ap3 16:50 Body Mass Index 25.84 (79.38 kg, 175.26 cm) ap3 ED Course: 14:40 Patient arrived in ED. eb 14:54 Lobo Hayward PA is PHCP. cp 14:54 Eliel Jordan MD is Attending Physician. cp 15:26 Triage completed. ss 15:26 Arm band placed on right wrist. ss 15:45 Maintain EMS IV. Dressing intact. Site clean \T\ dry. Gauge \T\ site: 20g right ac. ap 3 15:55 Shelly Montoya RN is Primary Nurse. ap3 15:58 Patient has correct armband on for positive identification. Bed in low position. Call ap3 light in reach. Side rails up X2. child monitor on. Pulse ox on. NIBP on. Door closed. Noise minimized. 16:00 Inserted saline lock: 20 gauge in left antecubital area, using aseptic technique. Blood ap3 collected. 16:10 XRAY Chest (1 view) In Process Unspecified. EDMS 18:05 CT Head Brain wo Cont In Process Unspecified. EDMS 18:07 CT Aorta for Dissection In Process Unspecified. EDMS 18:29 PHCP role handed off by Lobo Hayward PA [facility] 18:29 Tomás Floyd PA is PHCP. [facility] 19:24 Nurse Practitioner and/or Physician Car Sales Representative to see patient. ap3 20:41 Sveta Lott MD is Hospitalizing Provider. [facility] 23:41 Primary Nurse role handed off by Shelly Montoya, GABY ap3 07/14 02:39 Mary Brambila is Primary Nurse. cc4 02:42 Attending Physician role handed off by Eliel Jordan MD tw4 02:42 Julián Dunlap MD is Attending Physician. tw4 Administered Medications: 07/13 16:27 Drug: morphine 2 mg Route: IVP; Site: left antecubital; ap3 18:23 Follow up: Response: No adverse reaction; Pain is decreased ap3 17:19 Drug: NS 0.9% 1000 ml Route: IV; Rate: 1 bolus; Site: left antecubital; ap3 18:23 Drug: Potassium Chloride 20 mEq Route: IV; Rate: calculated rate; Site: right ap3 antecubital; 18:23 Drug: Magnesium Sulfate 1 grams Route: IVPB; Infused Over: 1 hrs; Site: left ap3 antecubital; 18:23 Drug: hydrALAZINE 10 mg Route: IVP; Site: left antecubital; ap3 07/14 03:19 Drug: hydrALAZINE 10 mg Route: IVP; Site: right forearm; cc4 03:19 Drug: morphine 2 mg Route: IVP; Site: right forearm; cc4 Outcome: 07/13 20:42 Decision to Hospitalize by Provider. [facility] 07/14 22:02 Patient left the ED. em Signatures: Dispatcher [employer] EDTN Tomás Floyd PA PA jmm Munoz, Edgar, RN RN Lucero Vitcoria RN RN Lobo Hayward PA PA Julián Dunlap MD MD tw4 Shelly Montoya RN RN [facility] Shavon Villagomez Christie cc4
[2021-07-13] MEDS: ATORVASTATIN 40 MG TAB PO SCH (20:59)
[2021-07-13] MEDS: METHYLPREDNISOLONE 125 MG INJ IV SCH (20:59)
[2021-07-13] MEDS: ASCORBIC ACID 500 MG TABLET PO SCH (20:59)
[2021-07-13] MEDS ORDERED: ATORVASTATIN 20 MG TAB ONE (21:12)
[2021-07-13] MEDS ORDERED: ASCORBIC ACID 500 MG TABLET ONE (21:12)
[2021-07-13] MEDS ORDERED: METHYLPREDNISOLONE 40 MG INJ ONE (21:12)
[2021-07-13] MEDS ORDERED: ONDANSETRON 4 MG/2 ML VIAL ONE (21:12)
[2021-07-13] MEDS ORDERED: POTASSIUM 25 MEQ EFFERV TAB ONE (21:12)
[2021-07-13 21:37] LABS: C-Reactive Protein 4.45 mg/L (<3.00); Ferritin 150.8 ng/mL (8-388); Troponin I < 0.02 ng/mL (0.0-0.045)
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
[2021-07-14 02:16] LABS: Absolute Lymphocytes (CBC) 0.3 K/uL (0.7-4.9); Basophils % 0.2 % (0-1.3); Hematocrit 36.9 % (36.0-45.0); Lymphocytes % 9.8 % (15.3-44.8); MPV 8.2 fL (7.6-11.3); RBC Red Blood Cell Count 4.59 M/uL (3.86-4.86)
[2021-07-14 02:40] LABS: ALT/SGPT 30 U/L (12-78); AST/SGOT 24 U/L (15-37); Albumin 3.3 g/dL (3.4-5.0); Alkaline Phosphatase 33 U/L (45-117); BUN Blood Urea Nitrogen 5 mg/dL (7-18); Bicarbonate 26 mmol/L (21-32); Bilirubin Total 0.6 mg/dL (0.2-1.0); Ferritin 159.8 ng/mL (8-388); Glucose Level 130 mg/dL (74-106); HDL Cholesterol 28 mg/dL (40-60); LDL Cholesterol, Calculated 92 (<130); Magnesium 2.2 mg/dL (1.8-2.4); Phosphorus 1.1 mg/dL (2.5-4.9); Protein, Total 8.1 g/dL (6.4-8.2); Sodium Level 142 mmol/L (136-145); Transferrin 232 mg/dL (200-360)
[2021-07-14] MEDS: MORPHINE 2 MG/ML SYR IV PRN (03:10)
[2021-07-14] MEDS ORDERED: MORPHINE 2 MG/ML SYR ONE (03:19)
[2021-07-14] MEDS: HYDRALAZINE HCL 20 MG/ML VIAL IV PRN ×3 (03:19→22:13)
[2021-07-14] MEDS ORDERED: HYDRALAZINE HCL 20 MG/ML VIAL ONE ×2 (03:19→11:15)
[2021-07-14] MEDS: METOPROLOL TAR 25 MG TAB PO SCH ×2 (06:00→18:00)
[2021-07-14] MEDS ORDERED: METOPROLOL TAR 25 MG TAB ONE ×2 (06:38→19:21)
[2021-07-14] MEDS: ZINC SULFATE 220 MG CAP PO SCH (09:00)
[2021-07-14] MEDS: ASCORBIC ACID 500 MG TABLET PO SCH ×4 (09:00→20:48)
[2021-07-14] MEDS: ASPIRIN EC 81 MG TAB PO SCH (09:00)
[2021-07-14] MEDS: METHYLPREDNISOLONE 125 MG INJ IV SCH ×4 (09:00→20:40)
[2021-07-14] MEDS: VITAMIN D 1000 UNIT TAB PO SCH (09:00)
[2021-07-14] MEDS: ENOXAPARIN 40 MG/0.4 ML SQ SCH (09:00)
[2021-07-14] MEDS: THIAMINE HCL 100 MG TABLET PO SCH (09:00)
[2021-07-14] MEDS ORDERED: ASCORBIC ACID 500 MG TABLET ONE ×3 (09:03→20:10)
[2021-07-14] MEDS ORDERED: THIAMINE HCL 100 MG TABLET ONE (09:03)
[2021-07-14] MEDS ORDERED: ENOXAPARIN 40 MG/0.4 ML SQ ONE (09:04)
[2021-07-14] MEDS ORDERED: METHYLPREDNISOLONE 40 MG INJ ONE (09:04)
[2021-07-14] MEDS ORDERED: ZINC SULFATE 220 MG CAP ONE (09:04)
[2021-07-14] MEDS ORDERED: VITAMIN D 1000 UNIT TAB ONE (09:04)
[2021-07-14] MEDS ORDERED: ASPIRIN EC 81 MG TAB PO ONE (09:04)
[2021-07-14] MEDS: POTASS/SODIUM PHOSPHATE 1 PKT POWD.PACK PO SCH ×3 (14:00→16:00)
[2021-07-14] MEDS ORDERED: POTASS/SODIUM PHOSPHATE 1 PKT POWD.PACK ONE (14:02)
[2021-07-14] MEDS ORDERED: MAGNES/ALUMIN/SIMET 30ML UCUP ONE (14:12)
[2021-07-14] MEDS ORDERED: LIDOCAINE VISCOUS 2% SOLN 15 ML UDC ONE (14:12)
[2021-07-14] MEDS ORDERED: MAGNES/ALUMIN/SIMET 30ML UCUP PO ONE (15:00)
[2021-07-14] MEDS ORDERED: LIDOCAINE VISCOUS 2% SOLN 15 ML UDC PO ONE (15:00)
[2021-07-14] MEDS ORDERED: PROMETHAZINE INJ 25 MG/ML AMP IM PRN (18:26)
[2021-07-14] MEDS: ONDANSETRON 4 MG/2 ML VIAL IV SCH (20:05)
[2021-07-14] MEDS ORDERED: METHYLPREDNISOLONE 125 MG INJ ONE (20:10)
[2021-07-14] MEDS ORDERED: ONDANSETRON 4 MG/2 ML VIAL ONE (20:10)
[2021-07-14] MEDS ORDERED: ATORVASTATIN 20 MG TAB ONE (20:10)
[2021-07-14] MEDS ORDERED: D5 0.45 NS 1,000 ML IV ONE (20:12)
[2021-07-14] MEDS: ATORVASTATIN 40 MG TAB PO SCH ×2 (20:31→21:00)
[2021-07-14] MEDS: D5 0.45 NS 1,000 ML IV SCH (22:12)
[2021-07-15] MEDS: ONDANSETRON 4 MG/2 ML VIAL IV SCH ×4 (05:35→17:12)
[2021-07-15] MEDS: METOPROLOL TAR 25 MG TAB PO SCH ×2 (05:37→17:09)
[2021-07-15] MEDS ORDERED: POTASSIUM PHOS IN 0.9 % NACL 15 MMOL/250 ML BAG IV ONE ×2 (05:43→06:00)
[2021-07-15] MEDS: PANTOPRAZOLE 40 MG INJ IVP SCH (05:49)
[2021-07-15] MEDS: D5 0.45 NS 1,000 ML IV SCH ×2 (05:50→17:09)
[2021-07-15] MEDS: MORPHINE 2 MG/ML SYR IV PRN ×2 (06:00→17:19)
[2021-07-15] MEDS ORDERED: PANTOPRAZOLE 40MG TABLET PO SCH (06:30)
[2021-07-15] MEDS: ENOXAPARIN 40 MG/0.4 ML SQ SCH (08:45)
[2021-07-15] MEDS: ASPIRIN EC 81 MG TAB PO SCH (08:46)
[2021-07-15] MEDS: METHYLPREDNISOLONE 125 MG INJ IV SCH ×2 (08:46→21:00)
[2021-07-15] MEDS: THIAMINE HCL 100 MG TABLET PO SCH (08:46)
[2021-07-15] MEDS: ZINC SULFATE 220 MG CAP PO SCH (08:47)
[2021-07-15] MEDS: ASCORBIC ACID 500 MG TABLET PO SCH ×4 (08:47→21:43)
[2021-07-15] MEDS: VITAMIN D 1000 UNIT TAB PO SCH (08:47)
[2021-07-15] MEDS: HYDRALAZINE HCL 20 MG/ML VIAL IV PRN (08:54)
--- NOTE | 2021-07-15 11:43 | P.PN ---
Subjective Date of Service: 07/15/21 Chief Complaint: chest pain Subjective: Improving (mild nausea. Has not been vomitting) Review of Systems 10-point ROS is otherwise unremarkable Gastrointestinal: Nausea Physical Examination - Vital Signs Temperature: 98.1 F Blood Pressure: 134/78 Pulse: 84 Respirations: 18 Pulse Ox (%): 96 - Physical Exam General: Alert, In no apparent distress HEENT: Atraumatic, PERRLA, EOMI Neck: Supple, JVD not distended Respiratory: Clear to auscultation bilaterally, Normal air movement Cardiovascular: Regular rate/rhythm, Normal S1 S2 Gastrointestinal: Normal bowel sounds, No tenderness Musculoskeletal: No tenderness Integumentary: No rashes Neurological: Normal speech, Normal tone, Normal affect Lymphatics: No axilla or inguinal lymphadenopathy Assessment & Plan - Problems (Diagnosis) (1) COVID Current Visit: Yes Status: Acute Plan: oxygen stable. Continue IV steroids. (2) Nausea & vomiting Current Visit: Yes Status: Acute Plan: will start her on clear liquid diet. If she tolerates we can advance it Qualifiers: Vomiting type: unspecified Vomiting Intractability: unspecified Qualified Code(s): R11.2 - Nausea with vomiting, unspecified (3) HTN (hypertension) Current Visit: Yes Status: Chronic Plan: stable will adjust his medications as needed. Qualifiers: Hypertension type: primary hypertension Qualified Code(s): I10 - Essential (primary) hypertension Discharge Plan: Home Plan to discharge in: 48 Hours - Code Status/Comfort Care Code Status Assessed: No Physician Review: Patient Assessed, Agree with Above Assessment and Plan Critical Care: No Time Spent Managing Pts Care (In Minutes): 20
[2021-07-15] MEDS: ATORVASTATIN 40 MG TAB PO SCH (21:00)
[2021-07-15 23:53] VITALS: BMI 3534.1
[2021-07-16] MEDS: D5 0.45 NS 1,000 ML IV SCH ×2 (01:00→11:00)
[2021-07-16] MEDS: METOPROLOL TAR 25 MG TAB PO SCH ×2 (04:59→17:23)
[2021-07-16] MEDS: ONDANSETRON 4 MG/2 ML VIAL IV SCH ×6 (05:00→23:46)
[2021-07-16 06:03] LABS: Absolute Lymphocytes (CBC) 0.7 K/uL (0.7-4.9); Hematocrit 30.8 % (36.0-45.0); Lymphocytes % 7.1 % (15.3-44.8); MPV 8.2 fL (7.6-11.3); RBC Red Blood Cell Count 3.83 M/uL (3.86-4.86)
[2021-07-16 06:12] LABS: ALT/SGPT 25 U/L (12-78); AST/SGOT 14 U/L (15-37); Albumin 2.8 g/dL (3.4-5.0); Alkaline Phosphatase 30 U/L (45-117); BUN Blood Urea Nitrogen 8 mg/dL (7-18); Bicarbonate 26 mmol/L (21-32); Bilirubin Total 0.5 mg/dL (0.2-1.0); Glucose Level 125 mg/dL (74-106); Magnesium 2.2 mg/dL (1.8-2.4); Potassium 3.8 mmol/L (3.5-5.1); Protein, Total 6.9 g/dL (6.4-8.2); Sodium Level 143 mmol/L (136-145)
[2021-07-16 07:21] LABS: Blood Morphology Comment NOT SEEN (NOT SEEN); Platelet Estimate INCR; White Blood Cell Scan OK (OK)
[2021-07-16] MEDS: PANTOPRAZOLE 40 MG INJ IVP SCH (08:46)
[2021-07-16] MEDS: METHYLPREDNISOLONE 125 MG INJ IV SCH (08:46)
[2021-07-16] MEDS: ENOXAPARIN 40 MG/0.4 ML SQ SCH (08:46)
[2021-07-16] MEDS: VITAMIN D 1000 UNIT TAB PO SCH (08:46)
[2021-07-16] MEDS: MORPHINE 2 MG/ML SYR IV PRN (08:47)
[2021-07-16] MEDS: ASCORBIC ACID 500 MG TABLET PO SCH ×4 (08:47→21:47)
[2021-07-16] MEDS: ASPIRIN EC 81 MG TAB PO SCH (08:47)
[2021-07-16] MEDS: THIAMINE HCL 100 MG TABLET PO SCH (08:47)
[2021-07-16] MEDS: ZINC SULFATE 220 MG CAP PO SCH (08:48)
[2021-07-16] MEDS ORDERED: POTASS/SODIUM PHOSPHATE 1 PKT POWD.PACK PO ONE (09:00)
[2021-07-16] MEDS: HYDRALAZINE HCL 20 MG/ML VIAL IV PRN ×2 (09:48→21:48)
--- NOTE | 2021-07-16 11:15 | P.PN ---
Subjective Date of Service: 07/16/21 Chief Complaint: chest pain Subjective: Improving (tolerated a liquid diet. She had some nausea) Review of Systems 10-point ROS is otherwise unremarkable Gastrointestinal: Nausea Physical Examination - Vital Signs Temperature: 97.3 F Blood Pressure: 213/114 Pulse: 70 Respirations: 16 Pulse Ox (%): 94 - Physical Exam General: Alert, In no apparent distress HEENT: Atraumatic, PERRLA, EOMI Neck: Supple, JVD not distended Respiratory: Clear to auscultation bilaterally, Normal air movement Cardiovascular: Regular rate/rhythm, Normal S1 S2 Gastrointestinal: Normal bowel sounds, No tenderness Musculoskeletal: No tenderness Integumentary: No rashes Neurological: Normal speech, Normal tone, Normal affect Lymphatics: No axilla or inguinal lymphadenopathy Assessment & Plan - Problems (Diagnosis) (1) COVID Current Visit: Yes Status: Acute Plan: oxygen stable. Continue IV steroids. 07/16 stable off oxygen (2) Nausea & vomiting Current Visit: Yes Status: Acute Plan: will start her on clear liquid diet. If she tolerates we can advance it 07/16 She tolerated a liquid diet. Will advance to soft. Had some nausea. Will see if we can get some stool samples. However she has not had a bm since admission Qualifiers: Vomiting type: unspecified Vomiting Intractability: unspecified Qualified Code(s): R11.2 - Nausea with vomiting, unspecified (3) HTN (hypertension) Current Visit: Yes Status: Chronic Plan: stable will adjust his medications as needed. Qualifiers: Hypertension type: primary hypertension Qualified Code(s): I10 - Essential (primary) hypertension Discharge Plan: Home Plan to discharge in: 24 Hours - Code Status/Comfort Care Code Status Assessed: No Physician Review: Patient Assessed, Agree with Above Assessment and Plan Critical Care: No Time Spent Managing Pts Care (In Minutes): 20
[2021-07-16] MEDS: lisinopriL 20 MG TAB PO SCH (11:59)
[2021-07-16] MEDS: ATORVASTATIN 40 MG TAB PO SCH (21:47)
[2021-07-17] MEDS: MORPHINE 2 MG/ML SYR IV PRN (00:27)
[2021-07-17] MEDS: ONDANSETRON 4 MG/2 ML VIAL IV SCH ×2 (05:19→12:57)
[2021-07-17] MEDS: METOPROLOL TAR 25 MG TAB PO SCH (05:19)
[2021-07-17] MEDS ORDERED: PANTOPRAZOLE 40MG TABLET PO SCH (06:30)
[2021-07-17 07:27] LABS: Absolute Lymphocytes (CBC) 1.3 K/uL (0.7-4.9); Basophils % 0.6 % (0-1.3); Hematocrit 31.2 % (36.0-45.0); Lymphocytes % 14.3 % (15.3-44.8); MPV 8.6 fL (7.6-11.3); RBC Red Blood Cell Count 3.85 M/uL (3.86-4.86)
[2021-07-17 07:37] LABS: ALT/SGPT 20 U/L (12-78); AST/SGOT 10 U/L (15-37); Albumin 2.7 g/dL (3.4-5.0); Alkaline Phosphatase 28 U/L (45-117); BUN Blood Urea Nitrogen 14 mg/dL (7-18); Bicarbonate 27 mmol/L (21-32); Bilirubin Total 0.5 mg/dL (0.2-1.0); Glucose Level 85 mg/dL (74-106); Potassium 3.7 mmol/L (3.5-5.1); Protein, Total 6.5 g/dL (6.4-8.2); Sodium Level 143 mmol/L (136-145)
[2021-07-17] MEDS ORDERED: POTASSIUM 25 MEQ EFFERV TAB PO ONE (07:59)
[2021-07-17] MEDS: VITAMIN D 1000 UNIT TAB PO SCH (09:13)
[2021-07-17] MEDS: ASCORBIC ACID 500 MG TABLET PO SCH ×2 (09:14→12:57)
[2021-07-17] MEDS: METHYLPREDNISOLONE 125 MG INJ IV SCH (09:14)
[2021-07-17] MEDS: ASPIRIN EC 81 MG TAB PO SCH (09:14)
[2021-07-17] MEDS: ZINC SULFATE 220 MG CAP PO SCH (09:14)
[2021-07-17] MEDS: lisinopriL 20 MG TAB PO SCH (09:14)
[2021-07-17] MEDS: ENOXAPARIN 40 MG/0.4 ML SQ SCH (09:15)
[2021-07-17] MEDS: THIAMINE HCL 100 MG TABLET PO SCH (09:16)
[2021-07-17 10:46] VITALS: O2SAT 96
--- NOTE | 2021-07-17 13:24 | P.DS ---
Admission Date: 07/14/21 Discharge Date: 07/17/21 Disposition: ROUTINE DISCHARGE Discharge Condition: GOOD Reason for Admission: chest pain - Problems (1) COVID Current Visit: Yes Status: Acute (2) Nausea & vomiting Current Visit: Yes Status: Acute Qualifiers: Vomiting type: unspecified Vomiting Intractability: unspecified Qualified Code(s): R11.2 - Nausea with vomiting, unspecified (3) HTN (hypertension) Current Visit: Yes Status: Chronic Qualifiers: Hypertension type: primary hypertension Qualified Code(s): I10 - Essential (primary) hypertension Brief History of Present Illness: Patient admitted for covid. had no sob. Mostly nausea and vomitting. Hospital Course: she has been recovering slowly. No vomiting in the last 2 days. She does still have some nausea with the diet. Will send her home on Nausea medicatons. Steroids for the covid. Will have her follow up with me in the office. if she so chooses. Vital Signs/Physical Exam: Temp Pulse Resp BP Pulse Ox 98.9 F 67 16 138/84 95 07/17/21 08:00 07/17/21 08:00 07/17/21 08:00 07/17/21 08:00 07/17/21 08:00 General: Alert, In no apparent distress HEENT: Atraumatic, PERRLA, EOMI Neck: Supple, JVD not distended Respiratory: Clear to auscultation bilaterally, Normal air movement Cardiovascular: Regular rate/rhythm, Normal S1 S2 Gastrointestinal: Normal bowel sounds, No tenderness Musculoskeletal: No tenderness Integumentary: No rashes Neurological: Normal speech, Normal tone, Normal affect Lymphatics: No axilla or inguinal lymphadenopathy Laboratory Data at Discharge: WBC 9.40 K/uL (4.3-10.9) 07/17/21 06:24 Hgb 10.2 g/dL (12.0-15.0) L 07/17/21 06:24 Hct 31.2 % (36.0-45.0) L 07/17/21 06:24 Plt Count 447 K/uL (152-406) H 07/17/21 06:24 PT 12.1 SECONDS (9.5-12.5) 07/13/21 16:09 INR 1.05 07/13/21 16:09 Sodium 143 mmol/L (136-145) 07/17/21 06:24 Potassium 3.7 mmol/L (3.5-5.1) 07/17/21 06:24 BUN 14 mg/dL (7-18) 07/17/21 06:24 Creatinine 0.85 mg/dL (0.55-1.3) 07/17/21 06:24 Glucose 85 mg/dL (74-106) 07/17/21 06:24 Phosphorus 3.1 mg/dL (2.5-4.9) D 07/16/21 05:40 Magnesium 2.2 mg/dL (1.8-2.4) 07/16/21 05:40 Total Bilirubin 0.5 mg/dL (0.2-1.0) 07/17/21 06:24 AST 10 U/L (15-37) L 07/17/21 06:24 ALT 20 U/L (12-78) 07/17/21 06:24 Alkaline Phosphatase 28 U/L (45-117) L 07/17/21 06:24 Troponin I < 0.02 ng/mL (0.0-0.045) 07/14/21 02:01 Triglycerides 89 mg/dL (<150) 07/14/21 02:01 Cholesterol 138 mg/dL (<200) 07/14/21 02:01 HDL Cholesterol 28 mg/dL (40-60) L 07/14/21 02:01 Cholesterol/HDL Ratio 4.93 07/14/21 02:01 Home Medications: Metoprolol Tartrate [Lopressor] 25 mg PO DAILY 07/14/21 Pantoprazole [Protonix Tab*] 40 mg PO DAILY 90 Days #90 tab 07/17/21 Promethazine Tab [Phenergan] 25 mg PO Q6HP PRN 30 Days #30 tab 07/17/21 predniSONE [Prednisone] 20 mg PO DAILY 7 Days #7 tablet 07/17/21 New Medications: Promethazine Tab [Phenergan] 25 mg PO Q6HP PRN 30 Days #30 tab PRN Reason: Nausea / Vomiting predniSONE [Prednisone] 20 mg PO DAILY 7 Days #7 tablet Pantoprazole [Protonix Tab*] 40 mg PO DAILY 90 Days #90 tab Diet: Bucks Activity: Ad malik Followup: David Chahal MD [ACTIVE - CAN ADMIT] - Physician Review: Patient Assessed, Agree with Above Assessment and Plan Time spent managing pt's care (in minutes): 25
[2021-07-17 13:41] VITALS: TEMP 97.7
[2021-07-17 14:16] VITALS: BP 147/88
== END 2021-07-17 14:50 | disposition home or self-care (01) | DRG 179 ==
LOC: ER 14:29 → ERHOLD 19:01 → OBSVTOIN 07-14 17:57 → 4TH 07-14 21:05
PROVIDERS: ADMIT Hospitalist; ATTEND Hospitalist
DX: U07.1 COVID-19 (principal); R11.2 Nausea with vomiting, unspecified; I10 Essential (primary) hypertension; R55 Syncope and collapse; R07.9 Chest pain, unspecified
CPT/HCPCS: 36415; 70450; 71045; 71275; 74175; 80048; 80053; 80061; 80076; 81003; 82728; 83540; 83735; 83880; 84100; 84145; 84439; 84443; 84466; 84484; 85025; 85610; 86140; 93005; 94760; 99284; C9113; G0378; J0360; J1650; J2270; J2405; J2920; J2930; J3475; J3480; J7799; Q9967